=== PATIENT | male | born 1965 | race American Indian/Alaskan Native ===

== ENCOUNTER 2016-11-03 01:48 | Emergency (ER) | payer OTHER ==
[2016-11-03] MEDS ORDERED: NACL 0.9% 1000 ML 1,000 ML IV ONE (02:29)
[2016-11-03 03:04] LABS: Basophils % (Auto) 0.4 % (0.0-1.8); Eosinophils % (Auto) 0.5 % (0.0-4.3); Hematocrit 37.2 % (35.5-45.6); Hemoglobin 12.2 gm/dl (11.8-15.2); Mean Corpuscular HGB Conc 33 % (32-34); Mean Corpuscular Hemoglobin 28 pg (28-32); Mean Corpuscular Volume 84 fl (84-94); Platelet Count 245 K/mm3 (140-440); Red Blood Count 4.43 M/mm3 (3.65-5.03); Red Cell Distribution Width 14.3 % (13.2-15.2); White Blood Count 10.2 K/mm3 (4.5-11.0)
[2016-11-03 03:12] LABS: INR 1.21 (0.87-1.13)
[2016-11-03 03:13] LABS: Partial Thromboplastin Time 27.5 Sec. (24.2-36.6)
[2016-11-03 03:18] LABS: BUN/Creatinine Ratio 11.53; Blood Urea Nitrogen 15 mg/dL (9-20); Carbon Dioxide 22 mmol/L (22-30)
[2016-11-03 03:19] LABS: Alanine Aminotransferase 28 units/L (7-56); Albumin 3.5 g/dL (3.9-5); Alkaline Phosphatase 66 units/L (35-129); Anion Gap 21 mmol/L; Bilirubin,Total 0.4 mg/dL (0.1-1.2); Calcium 8.6 mg/dL (8.4-10.2); Chloride 100.4 mmol/L (98-107); Glucose 177 mg/dL (75-100); Lipase 17 units/L (13-60); Potassium 3.9 mmol/L (3.6-5.0); Sodium 139 mmol/L (137-145)
--- NOTE | 2016-11-03 09:35 | Emergency Department Report ---
HPI - General Chief Complaint: GI Bleed Time Seen by Provider: 11/03/16 09:20 - HPI HPI: This is a 51-year-old Afro-[place] male who presents to the emergency department with complaint of a tooth abscess and/or dental pain, as well as an episode of rectal bleeding last night. Patient says he's been dealing with left lower jaw/tooth pain for the past few days. He says he has a broken wisdom tooth and needs it removed but he just developed some pain and swelling. He denies any drooling or trismus. The patient went to an urgent care recently and was placed on Augmentin, [place], and told that he could take ibuprofen. He says he has been taking 800 mg of ibuprofen every 4 hours as well as his other medications compliantly. Last night he had a bowel movement in which she had a large amount of dark and bright red blood seen both in the toilet and on the toilet paper. He denies any abdominal pain but says it is "bubbling." This concerned him and he came in for further evaluation. He has a primary care doctor through the [facility] system and is setting up a dentist appointment today. He otherwise denies any past medical history. ED Past Medical Hx - Past Medical History Hx Hypertension: Yes Hx Asthma: Yes - Surgical History Past Surgical History?: No - Social History Smoking Status: Current Every Day Smoker Substance Use Type: None - Medications Home Medications: Home Medications Medication Instructions Recorded Confirmed Last Taken Type traMADol [Ultram] 50 mg PO Q6HR PRN #16 tablet 11/03/16 Unknown Rx ED Review of Systems ROS: Stated complaint: REACTION TO MEDS Other details as noted in HPI Comment: All other systems reviewed and negative Constitutional: denies: chills, fever Eyes: denies: eye pain, eye discharge, vision change ENT: dental pain. denies: throat pain Respiratory: denies: cough, shortness of breath, wheezing Cardiovascular: denies: chest pain, palpitations Gastrointestinal: other (rectal bleeding). denies: nausea, vomiting Genitourinary: denies: urgency, dysuria Musculoskeletal: denies: back pain, joint swelling, arthralgia Skin: denies: rash, lesions Neurological: denies: headache, weakness, paresthesias Physical Exam - Physical Exam Vital Signs: Vital Signs 11/03/16 02:15 Temperature 98 F Pulse Rate 96 H Respiratory 16 Rate Blood Pressure 109/65 O2 Sat by Pulse 97 Oximetry Physical Exam: GENERAL: The patient is well-developed well-nourished. HEENT: Normocephalic. Atraumatic. Extraocular motions are intact. Patient has moist mucous membranes. Pupils equal reactive to light bilaterally. He has poor dentition. There is a broken tooth and some dental caries to the left lower posterior molars. The patient has discomfort. The area is tender to palpation and there is some mild soft tissue swelling but there is no visible or palpable abscess. No drooling or trismus. No signs of Camilo angina NECK: Supple. Trachea is midline. CHEST/LUNGS: Clear to auscultation. There is no respiratory distress noted. HEART/CARDIOVASCULAR: Regular. There is no tachycardia. There is no gallop rub or murmur. ABDOMEN: Abdomen is soft, nontender. Patient has normal bowel sounds. There is no abdominal distention. RECTAL: No hemorrhoids or lesions seen. There is mild gross blood seen that is positive on guaiac testing. SKIN: There is no rash. There is no edema. There is no diaphoresis. NEURO: The patient is awake, alert, and oriented. The patient is cooperative. The patient has no focal neurologic deficits. The patient has normal speech and gait. MUSCULOSKELETAL: There is no tenderness or deformity. There is no limitation range of motion. There is no evidence of acute injury. ED Course Vital Signs 11/03/16 02:15 Temperature 98 F Pulse Rate 96 H Respiratory 16 Rate Blood Pressure 109/65 O2 Sat by Pulse 97 Oximetry ED Medical Decision Making - Lab Data Result diagrams: 11/03/16 02:45 11/03/16 02:45 - EKG Data -: EKG Interpreted by Me EKG shows normal: sinus rhythm, axis, intervals, QRS complexes, ST-T waves Rate: normal - EKG Data When compared to previous EKG there are: previous EKG unavailable Interpretation: normal EKG - Medical Decision Making 62-year-old male presents to the emergency department with a tooth infection/ abscess and some rectal bleeding. Patient has been taking a large amount of ibuprofen but the stool is dark to bright red and not melanotic and therefore I have low suspicion that the ibuprofen is the cause. However the patient will stop using it. He is already on antibiotics. There is no visible or palpable abscess. No drooling or trismus. Vital signs stable including being afebrile. No leukocytosis. Patient will remain on antibiotics and will be given something else for pain medication. He is going to make an appointment with his dentist and will be given a referral for a filler and trimmer as he needs to follow up regarding the rectal bleeding and may need a colonoscopy in the near future. He will return to the ER with any worsening of his symptoms or any acute distress. - Differential Diagnosis tooth infection, abscess, hemorrhoids, malignancy Critical Care Time: No Critical care attestation.: If time is entered above; I have spent that time in minutes in the direct care of this critically ill patient, excluding procedure time. ED Disposition Clinical Impression: Dental infection, Rectal bleeding, Jaw pain Disposition: DISCHARGED TO HOME OR SELFCARE Is pt being admited?: No Does the pt Need Aspirin: No Condition: Stable Instructions: Toothache (ED), Rectal Bleeding (ED) Additional Instructions: Please follow-up with your primary care doctor in the next few days. Make an appointment with the dentist to get your dental infection and/or abscess taking care of. Take the antibiotics as prescribed. I've getting a referral for a local filler and trimmer, Dr. Horton, to follow up regarding your rectal bleeding as you may need a colonoscopy in the future. You've been prescribed a medication that is sedating. Therefore this medication cannot be mixed with alcohol, or taken prior to driving, working, or being responsible for children. Prescriptions: traMADol [Ultram] 50 mg PO Q6HR PRN #16 tablet PRN Reason: Pain Referrals: PRIMARY MD RICK [Primary Care Provider] - 3-5 Days NATALI HORTON MD [Staff Physician] - 3-5 Days Forms: Accompanied Note Time of Disposition: 10:25
--- NOTE | 2016-11-03 09:48 | Admit Criteria Form ---
Admission Criteria Documentation: GASTROINTESTINAL BLEEDING Clinical Indications for Inpatient Care (Place 'X' for any and all applicable criteria): Ongoing inpatient care may be indicated for gastrointestinal bleeding with ANY ONE of the following (4)(20)(21)(22)(23)(24): [X ]I. Active bleeding (eg, fresh voluminous blood in emesis or nasogastric aspirate, or per rectum) [ ]II. Hemodynamic instability [ ]III. Anticoagulation therapy or coagulopathy ((eg, advanced liver disease, irreversible anticoagulation) [ ]IV. Ischemic colitis (22) [ ]V. Endoscopy showing arterial bleeding, adherent clot, nonbleeding visible vessel, varices, flat red spots, ulcer size greater than 2 cm, or portal hypertensive gastropathy [ ]. High-risk low platelet count [ ]VII. Anemia requiring inpatient care as indicated by ANY ONE of the following a)[ ] Cognitive impairment b)[ ] Syncope c)[ ] Heart failure d)[ ] Chest pain e)[ ] Dyspnea f)[ ] Other findings suggesting inadequate perfusion (eg, peripheral or myocardial ischemia, end organ dysfunction) [ ]VIII. High-risk low platelet count [ ]IX. Suspected variceal cause of bleeding as indicated by ANY ONE of the following(27)(28): a)[ ] Known varices b)[ ] Hepatomegaly or splenomegaly c)[ ] Ascites d)[ ] Jaundice or scleral icterus e)[ ] History of liver disease (eg, cirrhosis) f)[ ] Physical findings of portal hypertension (eg, caput medusa) g)[ ] Comorbid disorder indicating risk for portal vein thrombosis (eg , abdominal surgery, sepsis, shock, exchange transfusion, prior umbilical vein catheterization) Extended stay may be needed until ALL of the following are present(20)(38)(47): [ ]a) Hemodynamic stability [ ]b) No evidence of active bleeding (eg, stable Hematocrit) [ ]c) Platelet count, prothrombin time, and partial thromboplastin time acceptable for next level of care [ ]d) Surgical or other acute intervention not needed [ ]e) Oral hydration and diet tolerated The original [facility] content created by Juan Funes has been revised. The portions of the content which have been revised are identified through the use of italic text or in bold, and [facility] has neither reviewed nor approved the modified material. All other unmodified content is copyright [facility]. Please see references footnoted in the original [facility] edition 2016 Admission Criteria Met: Yes
[2016-11-03 10:11] VITALS: BP 113/74
== END 2016-11-03 10:54 | disposition home or self-care (01) ==
LOC: ED 01:48
DX: K62.5 Hemorrhage of anus and rectum (principal); K04.7 Periapical abscess without sinus; R68.84 Jaw pain; I10 Essential (primary) hypertension; J45.909 Unspecified asthma, uncomplicated; F17.200 Nicotine dependence, unspecified, uncomplicated
CPT/HCPCS: 36415; 80053; 83690; 85025; 85610; 85730; 86850; 86900; 86901; 93005; 93010; 99284